=== PATIENT | male | born 1955 | race Caucasian/White ===

== ENCOUNTER → 2017-01-29 | Outpatient (CLI) | payer OTHER ==
[2016-10-16 12:33] VITALS: BP 125/65
[~2017-01-29] MED LIST: NS 100 ML IV 100 ML IV ONE
[2017-01-29 10:09] LABS: CREATININE 0.97 mg/dL (0.70-1.30)
--- NOTE | 2017-01-29 11:37 | CT ---
HISTORY: Cough, shortness of breath Study: CT chest with contrast Comparison: October 14, 2016 Technique: Axial post-contrast images with coronal and sagittal reformats. Dose reduction procedures were use with MA/kv adjusted for body size. Findings: Examination of the mediastinum demonstrated no definite evidence for mediastinal mass, enlarged medi astinal adenopathy, or enlarged hilar adenopathy. No pleural effusions are identified. No chest wall or axillary abnormality is identified. Those portions of the upper abdominal organs visualized were within normal limits. Examination of the lung gagnon demonstrated extensive changes of centrilobula r emphysema with biapical bullae. Hyperinflation is present. No significant nodules, alveolar infilt rates, masses, areas of consolidation, or bronchiectasis is present. There is some peribronchial thi ckening consistent with bronchitis which could be acute, chronic, or both. IMPRESSION: Emphysematous COPD Mild peribronchial thickening consistent with bronchitis which could be acute, chronic, or both Reported By:
== END ==
LOC: RAD 09:47
PROVIDERS: ATTEND Internal Medicine
DX: R05 Cough (principal); J44.9 Chronic obstructive pulmonary disease, unspecified; R06.02 Shortness of breath
CPT/HCPCS: 36415; 71260; 82565; 84520; A4222